=== PATIENT | female | born 1965 | race Caucasian/White ===

== ENCOUNTER 2021-06-30 14:45 | Inpatient (IN) ==
[2021-06-30] MEDS ORDERED: ALBUTEROL/IPRATROPIUM 3 ML NEB RESP TX STA (16:12)
[2021-06-30] MEDS ORDERED: SODIUM CHLORIDE 0.9% 1,000 ML IV STA (16:12)
[2021-06-30 17:20] LABS: Albumin 2.2 G/DL (3.4-5.0); Calcium 8.8 MG/DL (8.5-10.1); Potassium 5.1 MMOL/L (3.5-5.1); Total Protein 6.7 G/DL (6.4-8.2)
[2021-06-30 17:26] LABS: Basophils # 0.1 10*3/uL (0.0-0.2); Basophils % 1.3 % (0.0-0.8); Eosinophils % 0.2 % (0.00-10.9); Hematocrit 41.3 VOL% (35.7-47.0); Hemoglobin 11.5 GM/DL (12.0-16.0); Immature Granulocytes % 1.5 %; Immature Granulocytes Absolute 0.08 #; Lymphocytes # 1.2 10*3/uL (1.4-4.0); Lymphocytes % 21.6 % (21.3-54.2); Mean Corpuscular HGB Conc 27.8 GM/DL (32-36); Mean Corpuscular Volume 89.2 FL (87-102); Mean Platelet Volume 10.6 FL (9.6-12.0); Monocytes % 7.7 % (1.7-12.7); NRBC # 0.03 10*3/uL; Neutrophils % 67.7 % (38.7-73.9); Platelet Count 228 T/CUMM (130-400); Red Blood Count 4.63 MC/CUMM (3.8-5.5); Red Cell Distribution Width 22.6 % (9.3-17.3); White Blood Count 5.4 T/CUMM (4-12)
[2021-06-30] MEDS ORDERED: FUROSEMIDE 40 MG/4 ML VIAL IV STA (19:32)
[2021-06-30] MEDS ORDERED: FUROSEMIDE 100 MG/10 ML VIAL ONE (19:34)
[2021-06-30] MEDS ORDERED: ONDANSETRON 4 MG/2 ML VIAL IV PRN (19:39)
[2021-06-30] MEDS ORDERED: ALBUTEROL/IPRATROPIUM 3 ML NEB RESP TX PRN (19:44)
[2021-06-30] MEDS: cefTRIAXone 1,000 MG in SODIUM CHLORIDE 0.9% 100 ML IV SCH (20:10)
[2021-06-30 20:16] LABS: Basophils # 0.1 10*3/uL (0.0-0.2); Basophils % 1.3 % (0.0-0.8); Eosinophils % 0.3 % (0.00-10.9); Hematocrit 44.1 VOL% (35.7-47.0); Hemoglobin 11.9 GM/DL (12.0-16.0); Immature Granulocytes % 1.9 %; Immature Granulocytes Absolute 0.14 #; Lymphocytes # 1.6 10*3/uL (1.4-4.0); Lymphocytes % 20.9 % (21.3-54.2); Mean Corpuscular Volume 90.2 FL (87-102); Monocytes % 8.6 % (1.7-12.7); NRBC # 0.06 10*3/uL; Platelet Count 223 T/CUMM (130-400); Red Blood Count 4.89 MC/CUMM (3.8-5.5); Red Cell Distribution Width 22.9 % (9.3-17.3); White Blood Count 7.6 T/CUMM (4-12)
[2021-06-30] MEDS: AZITHROMYCIN INJ 500 MG in SODIUM CHLORIDE 0.9% 250 ML IV SCH (21:00)
[2021-07-01 04:57] LABS: Calcium 8.2 MG/DL (8.5-10.1); Osmolality,Calculated 274.7 MOS/KG (273-304); Potassium 3.7 MMOL/L (3.5-5.1)
[2021-07-01 04:59] LABS: INR 1.5; PT Patient Result 15.9 SECS (10.5-12.0)
[2021-07-01 10:56] LABS: Lymphocytes,Pleural Fluid 62 %; Monocytes,Pleural Fluid 4 %; Neutrophils,Pleural Fluid 34 %
[2021-07-01 11:00] LABS: RBC,Pleural Fluid 4120 T/CUMM
[2021-07-01] MEDS: PANTOPRAZOLE 40 MG TABLET PO SCH (11:53)
[2021-07-01] MEDS: ENOXAPARIN 40 MG/0.4 ML SYRINGE SUBCUT SCH ×2 (15:39→16:25)
[2021-07-01] MEDS: FUROSEMIDE 40 MG/4 ML VIAL IV SCH (15:40)
[2021-07-01] MEDS: cefTRIAXone 1,000 MG in SODIUM CHLORIDE 0.9% 100 ML IV SCH (20:45)
[2021-07-01] MEDS: AZITHROMYCIN INJ 500 MG in SODIUM CHLORIDE 0.9% 250 ML IV SCH (21:48)
[2021-07-02 05:52] LABS: Calcium 8.2 MG/DL (8.5-10.1); Osmolality,Calculated 269.8 MOS/KG (273-304); Potassium 3.2 MMOL/L (3.5-5.1)
[2021-07-02 06:20] LABS: Basophils # 0.1 10*3/uL (0.0-0.2); Basophils % 1.1 % (0.0-0.8); Eosinophils % 0.4 % (0.00-10.9); Hemoglobin 10.6 GM/DL (12.0-16.0); Immature Granulocytes % 0.4 %; Immature Granulocytes Absolute 0.02 #; Lymphocytes # 1.2 10*3/uL (1.4-4.0); Lymphocytes % 24.6 % (21.3-54.2); Mean Corpuscular HGB Conc 27.8 GM/DL (32-36); Mean Corpuscular Volume 87.6 FL (87-102); Mean Platelet Volume 10.3 FL (9.6-12.0); Monocytes % 9.5 % (1.7-12.7); Platelet Count 156 T/CUMM (130-400); Red Blood Count 4.35 MC/CUMM (3.8-5.5); Red Cell Distribution Width 22.1 % (9.3-17.3); White Blood Count 4.8 T/CUMM (4-12)
[2021-07-02 06:21] LABS: Hematocrit 38.1 VOL% (35.7-47.0)
[2021-07-02] MEDS: FUROSEMIDE 40 MG/4 ML VIAL IV SCH ×2 (08:02→15:40)
[2021-07-02] MEDS: PANTOPRAZOLE 40 MG TABLET PO SCH (08:02)
[2021-07-02] MEDS: POTASSIUM CHLORIDE 20 MEQ TABLET PO SCH (08:02)
[2021-07-02] MEDS: NICOTINE 21 MG/24 HR PATCH TRANSDERM SCH (15:40)
[2021-07-02] MEDS: ENOXAPARIN 40 MG/0.4 ML SYRINGE SUBCUT SCH (15:45)
[2021-07-02] MEDS: cefTRIAXone 1,000 MG in SODIUM CHLORIDE 0.9% 100 ML IV SCH (21:07)
[2021-07-02] MEDS: AZITHROMYCIN INJ 500 MG in SODIUM CHLORIDE 0.9% 250 ML IV SCH (22:12)
[2021-07-03] MEDS ORDERED: ACETAMINOPHEN 325 MG TABLET PO PRN (03:43)
[2021-07-03 06:29] LABS: Calcium 8.3 MG/DL (8.5-10.1)
[2021-07-03 06:34] LABS: Osmolality,Calculated 263.4 MOS/KG (273-304)
[2021-07-03 06:41] LABS: Potassium 2.5 MMOL/L (3.5-5.1)
[2021-07-03 06:44] LABS: Eosinophils # 0.1 10*3/uL (0.0-0.87); Eosinophils % 1.8 % (0.00-10.9); Hemoglobin 11.7 GM/DL (12.0-16.0); Immature Granulocytes % 0.8 %; Immature Granulocytes Absolute 0.03 #; Lymphocytes # 1.2 10*3/uL (1.4-4.0); Lymphocytes % 30.3 % (21.3-54.2); Mean Corpuscular HGB Conc 28.2 GM/DL (32-36); Mean Corpuscular Volume 85.9 FL (87-102); Mean Platelet Volume 10.4 FL (9.6-12.0); Monocytes % 8.8 % (1.7-12.7); Neutrophils % 57.3 % (38.7-73.9); Platelet Count 142 T/CUMM (130-400); Red Blood Count 4.83 MC/CUMM (3.8-5.5)
[2021-07-03 06:46] LABS: Hematocrit 41.5 VOL% (35.7-47.0)
[2021-07-03] MEDS ORDERED: MAGNESIUM SULF RIDER 2 GM/50 ML PREMIX IV PRN (07:20)
[2021-07-03] MEDS ORDERED: MAGNESIUM SULF RIDER 4 GM/100 ML PREMIX IV PRN (07:20)
[2021-07-03] MEDS: POTASSIUM CHLORIDE 20 MEQ TABLET PO SCH (08:23)
[2021-07-03] MEDS: NICOTINE 21 MG/24 HR PATCH TRANSDERM SCH (08:24)
[2021-07-03] MEDS: FUROSEMIDE 40 MG/4 ML VIAL IV SCH (08:34)
[2021-07-03] MEDS: PANTOPRAZOLE 40 MG TABLET PO SCH (08:35)
[2021-07-03] MEDS: POTASSIUM CHLORIDE 20 MEQ TABLET PO PRN ×2 (10:20→13:24)
[2021-07-03 15:49] VITALS: BP 148/66
== END 2021-07-03 15:55 | disposition home or self-care (01) | DRG 291 ==
LOC: N.ED 14:45 → N.EDINP 19:39 → N.3E 07-01 14:22
PROVIDERS: ADMIT Internal Medicine; ATTEND Internal Medicine